=== PATIENT | female | born 1995 | race Caucasian/White ===

== ENCOUNTER → 2017-02-15 00:32 | Observation (INO) ==
--- NOTE | 2017-02-14 21:16 | OB/GYN Progress Note ---
Date of Encounter: 02/14/17 Time of Encounter: 21:12 - Assessment and Plan (1) Fall Current Visit: Yes Status: Acute Will monitor for 4 hours post fall. If remains tracing remains appropriate for gestational age and no pain will discharge to home. Qualifiers: Encounter type: initial encounter Qualified Code(s): W19.XXXA - Unspecified fall, initial encounter (2) 24 weeks gestation of Current Visit: Yes Status: Acute + movement, Follow up with Dr. Pina as scheduled. Subjective - Subjective Principal diagnosis: Fall Interval history: 22 y/o with fall this evening at 2019. Pt states she was crossing the street and tripped on the sidewalk and hit her back right flank area. Pt states did not hit abdomen, denies vaginal bleeding, leaking of fluid or contractions and has good movement. Pt states has some slight right groin pain that feels like a pulled muscle from walking right after falling none at rest. Labs: B+ Antepartum ROS: movement normal, no loss of fluid, no vaginal bleeding, no contractions Objective - Exam FHR: auscultation normal Auscultation: bilateral: normal Abdomen: Present: normal appearance, soft, gravid Uterus: Present: normal Comments: Pt up and ambulates without assist. No pain with abdominal palpation uterus soft and non tender.
== END | disposition home or self-care (01) ==
LOC: 1NENULAB
PROVIDERS: ADMIT Obstetrics & Gynecology; ATTEND Obstetrics & Gynecology

== ENCOUNTER 2017-06-07 06:00 | Inpatient (IN) ==
[2017-06-07] MEDS ORDERED: Naloxone 0.4 MG/ML INJ IVP PRN (06:07)
[2017-06-07] MEDS ORDERED: Metoclopramide 10 MG/2 ML VIAL IVP PRN (06:07)
[2017-06-07] MEDS ORDERED: Famotidine 20 MG/2 ML VIAL IVP PRN (06:07)
--- NOTE | 2017-06-07 06:11 | OB/GYN History & Physical ---
Date of Encounter: 06/07/17 Time of Encounter: 06:16 Assessment and Plan (1) Post term over 40 weeks Current visit: Yes Status: Acute Admit for IOL. Cytotec administered vaginally this am. GBS negative. SVE 2-375/-2. EFW by jimbo 8lbs. Epidural when requested. Plan for AROM when able. Anticipate . History of Present Illness Chief complaint: Induction of Labor HPI: Ms. Uribe is a 22 year old female with PMHX of migraines presenting for an induction of labor at 40w5d. She has had care at [place] with Dr. Pina. was uncomplicated other than one fall s/p 20 weeks on side hip , following which FHT was monitored here. Pt denies vaginal bleeding, fluid loss , contractions, or cramping this am. Endorses active movement. Notes one episode of brief headache yesterday, which has subsided. She has signed the informed consent for induction. [place] Score 6 noted last week as outpatient, with cervical exam 280/-1. labs are B Positive/Varicella IgG Antibody +/Rubella Immune/HepB Nonreactive/HIV Ab Neg/GBS neg Past Med Surg Social Fam HX - Past Medical History Medical history: no medical history Psychiatric history: no psych history - Past Surgical History Surgical History: no surgical history - Social History Smoking Status: Former smoker Smokeless Tobacco Status: No Alcohol use: none Drug use: none - Family History Mother History Unknown: Yes (Mitral Valve Prolapse) Living Status: Still Living Hx Family Cardiac Disorders: Yes (mitral valve prolaps) Hx Family Respiratory Disorders: No Hx Family Cancer: No Hx Family GI Disorders: No Hx Family Endocrine Disorder: No Hx Family Neuromuscular Disorders: No Hx Family Neurologic Disorders: No Hx Family HEENT Disorders: No Hx Family Autoimmune Disorders: No Father History Unknown: Yes (Factor 9, 13 Disorder) Living Status: Still Living Hx Family Cardiac Disorders: Yes (mitral valve prolaps) Hx Family Respiratory Disorders: No Hx Family Cancer: No Hx Family GI Disorders: No Hx Family Endocrine Disorder: No Hx Family Neuromuscular Disorders: No Hx Family Neurologic Disorders: No Hx Family HEENT Disorders: No Hx Family Autoimmune Disorders: No Obstetrical History - Pregnancies : 1 Para: 0 Term: 0 : 0 Ab's: 0 Livin - History/Complications History/Complications: Last Pap Smear: 07/30/2016. Medications and Allergies Pnv95/Ferrous Fumarate/FA [ Vitamin Tablet] 1 each PO DAILY 06/07/17 [ History] Allergies aspirin [ASA] Allergy (Verified 06/07/17 06:15) Hives Review of System OB All systems PM: reviewed and no additional remarkable complaints except as stated Exam - Vital Signs Vital signs: T: 98.9 BP: 133/73 HR: 99 RR: 16 - Constitutional Constitutional: well developed, well nourished - HEENT HEENT: EOMI, Normocephaly - Neck Neck exam: supple - Lungs Respiratory exam: CTAB - Cardiovascular Cardiovascular exam: RRR - Abdomen Abdomen: Present: bowel sounds normal, gravid, non tender - Extremities Extremities exam: full ROM (no calf tenderness. pedeal edema) Deep Tendon Reflex Grade: 2+ Normal - Cervix Dilation: 3 (2-3 per RN) Effacement: 75 Station: -2 - Uterus Uterus exam: Present: normal size, normal contour - Comments Comments: Cervical exam performed by RN Cervical dilation: 2-3 FHT: 150 bpm baseline Variability: Minimal Contractions: Irregular Results Result Diagrams: 06/07/17 06:34 All other labs normal. US - abdomen: report reviewed (Transabdominal Anatomy Report Scan (01/11/17): Single live VTX fetus anterior Placenta Mat Adnexas appear WNL +FHR AGA EFW 12 OZ adequate fluid No gross anomalies seen at this time. ) - VTE Reasons for not Prescribing Prophylaxis: Treatment not Indicated - Low risk for VTE
[2017-06-07 06:44] LABS: Basophils % 0.3 %; Hematocrit 34.8 % (35.3-44.9); Hemoglobin 11.5 g/dL (11.5-15.4); Immature Granulocytes % 0.6 % (0-4); Lymphocytes # 1.2 K/mcL (0.6-4.6); Lymphocytes % 16.8 %; Mean Corpuscular Hemoglobin 28.8 pg (28.0-33.3); Mean Corpuscular Volume 87.2 fL (83.0-100.0); Mean Platelet Volume 10.9 fL (9.4-12.4); Monocytes # 0.5 K/mcL (0.0-1.3); Monocytes % 7.2 %; Neutrophils # 5.1 K/mcL (1.6-8.9); Platelet Count 189 K/mcL (140-400); Red Blood Count 3.99 M/mcL (3.82-4.97); Red Cell Distribution Width 12.9 % (11.5-14.5); Segmented Neutrophils % 75.1 %
[2017-06-07] MEDS ORDERED: Ringers Solution, Lactated 1,000 ML ONE (06:50)
[2017-06-07] MEDS: Ringers Solution, Lactated 1,000 ML IVC SCH ×2 (06:55→17:01)
[2017-06-07] MEDS ORDERED: miSOPROStol 25 MCG TABLET VG SCH (08:00)
--- NOTE | 2017-06-07 12:40 | OB Labor Progress Note ---
Date of Encounter: 06/07/17 Time of Encounter: 12:30 Labor Progress Note - Subjective Subjective: Pt states she doesn't feel her contractions - Cervix Cervix: 3/90/-1 - Heart Tones Heart Tones: Category I - [place]: Q 1 minute, mild to palpation, not felt by pt - Interventions Interventions: AROM for small amount blood tinged fluid - Plan Plan: Continue to monitor. Epidural when requested. Will consider IUPC if needed. Anticipate .
[2017-06-07] MEDS: *HR* Nalbuphine 20 MG/ML AMPUL IVP PRN ×2 (14:22→17:28)
--- NOTE | 2017-06-07 16:30 | OB Labor Progress Note ---
Date of Encounter: 06/07/17 Time of Encounter: 16:28 Labor Progress Note - Subjective Subjective: Pt with severe pain with contractions. - Cervix Cervix: 5/90/-1 - Heart Tones Heart Tones: Category I - [place]: Q 1-2, mild to palpation - Interventions Interventions: IUPC placed - Plan Plan: Continue to monitor. Epidural when requested. Will augment with pitocin if needed for adequate contractions. Anticipate .
[2017-06-07] MEDS ORDERED: Oxytocin 20 units/ LR 1000 mL 20 UNIT/1,000 ML BAG IVC SCH ×2 (16:45→23:38)
[2017-06-07] MEDS ORDERED: Epidural Premix (fent/bupiv) 110 ML EP ONE (17:42)
[2017-06-07] MEDS ORDERED: *HR* FentaNYL (PF) 100 MCG/2 ML VIAL ONE (17:42)
[2017-06-07] MEDS ORDERED: Bupivacaine-MPF 0.25% 10 ML VIAL ONE (17:42)
--- NOTE | 2017-06-07 18:18 | Anesthesia Evaluation PreOp ---
Date of Encounter: 06/07/17 Time of Encounter: 17:44 - Past History Planned Operation: MARY Cardiac History: Denies any Significant Hx Pulmonary History: Denies Any Significant HX DRUG SAFETY SPECIALIST History: Denies Any Significant HX Other Medical History: Denies Any Significant HX Anesthesia History: No Prior Anesthetic Complications (never had any procedure requiring GA or NA; denies family h/o GA complications) : Yes Test: Positive Alcohol Use: none Drug use: none Medications and Allergies Pnv95/Ferrous Fumarate/FA [ Vitamin Tablet] 1 each PO DAILY 06/07/17 [ History] Allergies aspirin [ASA] Allergy (Verified 06/07/17 06:15) Hives - Meds/Allergy Pre-op Review Medications Reviewed: Yes Allergies Reviewed: Yes Beta Blockers on Current Med List: No Anesthesia Results - Labs 06/07/17 06:34 Anesthesia Exam 125/72; HR 82; RR 22 Height: 1.63m Weight: 73kg NPO (# of Hours): >8hrs Pain Scale: 10 Pain Scale Used: Numeric (1 - 10) - HEENT Pupil (Motor): Pupils equal Mallampati: II Teeth: Normal Oral Opening: Greater than 3 - DRUG SAFETY SPECIALIST LOC: Oriented DRUG SAFETY SPECIALIST Motor: Normal RUE, Normal LUE, Normal RLE, Normal LLE, Normal Face DRUG SAFETY SPECIALIST Sensory: Normal: RUE, LUE, RLE, LLE, Face - Cardiac Rhythm: Regular Murmur: None - Pulmonary Breath Sounds: bilateral Clear Respiratory Effort: Symmetrical Anesthesia Assess/Plan ASA Score: 2 Modified Jiym Scale for Level of Consciousness: Anixous, agitated or restless Anesthetic Plan: Regional Autologous Blood: No Monitoring Plan: Standard Monitors Recovery Plan: Other
[2017-06-07] MEDS ORDERED: Bupivacaine-MPF 0.25% 10 ML VIAL EP ONE (18:20)
[2017-06-07] MEDS ORDERED: *HR* FentaNYL (PF) 100 MCG/2 ML VIAL EP ONE (18:20)
--- NOTE | 2017-06-07 18:20 | Anesthesia Procedures ---
Date of Encounter: 06/07/17 Time of Encounter: 18:18 Procedures: Anesthesia - Epidural/Spinal Patient ID/Chart reviewed: Yes Patient examined: Yes OB Eval: Gestational age: 40 weeks 5 days OB Eval: : 1 OB Eval: Hx Para: 0 OB Eval: Dilated at (cm): 5 OB Eval: Contractions: Non-stressed pattern Consent Obtained: Yes Supplemental Oxygen: None/Room Air Site Prep: Aseptic Technique, Sterile prep and drape, Povidone-Iodine 1% Patient position: upright Local Anesthetic: Lidocaine 1% Amount of Local Anesthetic used: 3 Touhy Needle Gauge: 18 Touhy Needle Depth (cm): 5 Catheter Depth at Skin (cm): 10 Test Dose (1.5% Lido + Epi): Volume given (mls): 5 Test Dose Result: Negative Loading Dose: 0.25% Marcaine (mls): 5 Loading Dose: Fentanyl (mcg): 100 Loading Dose Administered: Thru Catheter Infusion Med: 0.125% Bupivacaine w/ 2 mcg/ml Fentanyl Infusion Rate (mls/hr): 14 (w/ demand bolus of 4mL q20min PRN) Catheter Secured in Place: Tegaderm, Tape Interspace Used: L4-L5 Loss of Resistance (SHER): Yes Blood: No CSF: No Paresthesia: No Vitals + FHT's: please refer to Carol MOBLEY's electronic documentation
[2017-06-07] MEDS ORDERED: Epidural Premix (fent/bupiv) 110 ML EP SCH (18:30)
--- NOTE | 2017-06-07 23:32 | OB/GYN Procedure Note ---
Delivery - Delivery Date: 06/07/17 Provider: Isabel Pina Intrapartum events: none Delivery induction: AROM, oxytocin, misoprostol Delivery monitor: external FHT, external uterine, internal uterine Anesthesia: epidural Estimated Blood Loss: 400 - Infant (s) Infant A Infant Delivery Date: 06/07/17 Infant Delivery Time: 23:01 Presentation: vertex Position: ILANA Route of delivery: Gender: Male Viability: Viable Pounds: 8 Ounces: 12 Weight Gram: 3.98 kg at 1 minute: 8 at 5 mins: 9 Shoulder Dystocia: not encountered Specimens collected: cord blood Placenta: spontaneous Cord: 3 umbilical vessels - Repair Episiotomy: none Laceration Description: Perineal - 3rd Degree - Complications Delivery complications: none Delivery comments: Called to room with patient complete and +2 station. Under maternal effort she delivered a viable male weighing 8 lbs. 12 oz. and Apgars 8 and 9 at one and 5 minutes respectively over a third-degree perineal laceration. Following delivery of the head the infant was bulb suctioned. There is no nuchal cord or shoulder dystocia encountered. delivered with maternal effort was placed on mom's abdomen. Cord was clamped and cut. A rectal exam was performed and mucosa was found to be intact. Third-degree perineal laceration was repaired using both 2-0 and 3-0 Vicryl in standard fashion. Placenta delivered spontaneously, complete, and intact with a three-vessel cord. Mother and infant are recovering in LDR in stable condition. - Disposition Mom disposition: stable in LDR disposition: stable in LDR
[2017-06-07] MEDS ORDERED: Sennosides 8.6 MG TABLET PO SCH (23:38)
[2017-06-07] MEDS ORDERED: Acetaminophen 325 MG TABLET PO PRN (23:38)
[2017-06-08] MEDS: *HR* HYDROcodone/Acet 5/325 mg TABLET PO PRN ×2 (09:34→18:10)
[2017-06-08] MEDS: Prenatal Vit/FA 1 EACH TABLET PO SCH (09:34)
--- NOTE | 2017-06-08 10:48 | OB/GYN Progress Note ---
Date of Encounter: 06/08/17 Time of Encounter: 10:46 - Assessment and Plan (1) Vaginal delivery Current Visit: Yes Status: Acute Stable day 1. Continue current management. Encourage pt to take pain medication as needed. Anticipate DC tomorrow. Subjective - Subjective Interval history: Pt states is having increased pain, but has not taken pain medication at this time. Voiding without difficulty. . Patient reports: appetite normal, voiding normally, ambulating normally [place]: doing well Objective - Latest Vital Signs Latest vital signs: Vital Signs Temp Pulse Pulse Resp BP Pulse Ox 06/08/17 08:35 99.2 F 90 16 123/73 97 06/08/17 08:29 16 06/08/17 03:38 98.6 F 80 16 116/67 98 06/08/17 02:35 98.7 F 85 16 123/73 98 06/08/17 01:30 98.6 F 76 64 15 122/72 98 Intake and Output 06/07/17 06/08/17 06/08/17 23:59 07:59 15:59 Intake Total 0 / 0 Output Total 500 / 500 400 / 400 Balance -500 / -500 -400 / -400 Intake: Oral 0 / 0 Output: Urine 500 / 500 400 / 400 Other: Weight 69.9 kg Patient Weight 06/08/17 23:59 Weight 69.9 kg - Exam Lungs: bilateral: normal Chest: Normal S1, Normal S2 Extremities: Present: normal Abdomen: Present: normal appearance, soft Uterus: Present: firm Uterus Position: At Umbilicus, Midline
[2017-06-08] MEDS: Benzocaine/Menthol 56 GM AEROSOL SPRAY TP PRN (16:47)
[2017-06-08] MEDS ORDERED: Lanolin 7 G OINT...G. TP PRN (20:15)
[2017-06-09] MEDS: *HR* HYDROcodone/Acet 5/325 mg TABLET PO PRN ×2 (00:06→09:02)
[2017-06-09 08:15] VITALS: BP 114/75
--- NOTE | 2017-06-09 08:37 | Discharge Summary ---
Date of Encounter: 06/09/17 Time of Encounter: 08:33 - Discharge Diagnosis (1) Third degree perineal laceration during delivery Priority: Secondary Status: Acute Comments: Continue colace Sitz bath prn Qualifiers: Third degree perineal laceration subtype: unspecified Qualified Code(s): O70.20 - Third degree perineal laceration during delivery, unspecified (2) Breast feeding status of mother Priority: Secondary Status: Acute Comments: support prn (3) Vaginal delivery Priority: Primary Status: Acute Comments: Continue routine care discharge home today follow up with Dr. Pina in 4-6 weeks - Discharge Medications Prescriptions: Breast Pump [BREAST PUMP] 1 each .ROUTE AD #1 each Docusate [Colace] 100 mg PO BID #60 Home Medications: Pnv95/Ferrous Fumarate/FA [ Vitamin Tablet] 1 each PO DAILY 06/07/17 [ History] Benzocaine/Menthol [place] [Dermoplast [place]] 1 appl TP QID PRN aerosol 06/09/17 [Rx] Breast Pump [BREAST PUMP] 1 each .ROUTE AD #1 each 06/09/17 [Rx] Docusate [Colace] 100 mg PO BID #60 06/09/17 [Rx] Lanolin [Lansinoh] 1 appl TP TID PRN 06/09/17 [Rx] Vit/FA 1 each PO DAILY tab 06/09/17 [Rx] Allergies/Adverse Reactions: Allergies aspirin [ASA] Allergy (Verified 06/07/17 06:15) Hives Data Procedures and tests throughout hospitalization: Laboratory Tests 06/07/17 06:34 WBC 6.8 RBC 3.99 Hgb 11.5 Hct 34.8 L MCV 87.2 MCH 28.8 MCHC 33.0 RDW 12.9 Plt Count 189 MPV 10.9 Immature Gran % 0.6 Seg Neutrophils % 75.1 Lymphocytes % 16.8 Monocytes % 7.2 Eosinophils % 0.0 Basophils % 0.3 Neutrophils # 5.1 Lymphocytes # 1.2 Monocytes # 0.5 Eosinophils # 0.0 Basophils # 0.0 Date of admission: 06/07/17 06:05 Primary care physician: Sorin Canela MD Consults: 06/07/17 23:38 Consult to Bundle Sorter [CONS] Routine Comment: Vaginal delivery, consult needed Discharging clinician: Jackie Olivia Anticipated date of discharge: 06/09/17 - Patient Status Disposition: Home, Self-Care Condition: Good Functional capacity at discharge: independent ambulation - Discharge Instructions Follow Up With: Sorin Canela MD [Primary Care Provider] - Isabel Pina DO [Partnered Physician] - - Diet and Activity Activity: increase activity as tolerated Diet: regular diet Hospital Course Delivery: Episiotomy: none Laceration: 3rd degree Other procedures: none complications: none Discharge diagnosis: IUP at term delivered [place] baby: male (breast feeding) Time Attestation: Total time spent providing and/or coordinating discharge services: Time Spent: Less than 30 minutes Exam - Constitutional Vitals: Temp Pulse Resp BP Pulse Ox 98 F 95 16 114/75 97 06/09/17 08:14 06/09/17 08:14 06/09/17 08:14 06/09/17 08:14 06/09/17 08:14 General appearance IM: A&O X 3, pleasant, answers questions appropriately - Respiratory Respiratory exam: Present: CTAB - Cardiovascular Cardiovascular exam IM: Present: RRR, +S1, +S2 - GI/Abdominal GI/Abdominal exam IM: normal bowel sounds - Uterine Tone: Firm Uterus Position: 1 Finger Below Umbilicus, Midline - Extremities Exam Extremities exam IM: Present: full ROM, normal capillary refill, normal inspection - Neurological Exam Neurological exam: alert, oriented X3, reflexes normal
[2017-06-09] MEDS: Prenatal Vit/FA 1 EACH TABLET PO SCH (08:58)
[2017-06-09] MEDS: Benzocaine/Menthol 56 GM AEROSOL SPRAY TP PRN (15:34)
== END 2017-06-09 18:56 | disposition home or self-care (01) | DRG 542 ==
LOC: 1NENULAB 06:05 → 1NENUOBS 06-08 01:39
PROVIDERS: ADMIT Obstetrics & Gynecology; ATTEND Obstetrics & Gynecology